=== PATIENT | male | born 2000 | race Caucasian/White ===

== ENCOUNTER 2021-02-03 01:22 | Emergency (ER) | payer MEDICAID, SELFPAY ==
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
[2021-02-03 01:25] VITALS: BP 112/86; PULSE 62; RESP 16; TEMP 36.7; O2SAT 98
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
[2021-02-03] MEDS: Acetaminophen 500 MG TAB 1000 MG PO (01:40)
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
== END 2021-02-03 02:08 | disposition home or self-care (01) ==
LOC: ER 02:11
PROVIDERS: Emergency Provider Emergency Medicine; PCP Neuromusculoskeletal Medicine & OMM
DX: G44.319 Acute post-traumatic headache, not intractable (principal); R40.2412 Glasgow coma scale score 13-15, at arrival to emergency department; V49.9XXA Car occupant (driver) (passenger) injured in unspecified traffic accident, initial encounter
CPT/HCPCS: 99284; 70450

== ENCOUNTER 2021-09-26 00:53 | Emergency (ER) | payer MEDICAID, SELFPAY ==
[2021-09-26 00:58] VITALS: BP 129/87; PULSE 77; RESP 18; TEMP 37.1; O2SAT 98
--- NOTE | 2021-09-26 01:08 | ED.GENADUL_ITS ---
Discharge Plan Disposition Patient Disposition: HOME Condition: Improving Discharge Details Clinical Impression: Pneumonia Primary Care Provider: Iker Poole ED Provider: Inder Cabrera Home Meds and New Rx's Prescriptions: New cefdinir 300 mg capsule 300 mg PO Q12H 10 Days Qty: 20 0RF Continued sertraline 50 mg Tablet 50 mg PO DAILY 0RF citalopram 10 mg tablet 10 mg DAILY 0RF Label Comments: TAKE ONE TABLET BY MOUTH EVERY DAY FOR 30 DAYS Discharge Instructions Instructions: Pneumonia (ED) Additional Instructions: Please take antibiotics as prescribed. Follow-up with regular doctor in [place] if not improving in 3 to 5 days time. Return to the ER for any acute concerns. Medical Decision Making 21-year-old male presents from home with 6 to 7 days of upper abdominal pain that is been fairly constant, nonradiating, worse with eating. Associated with nausea, vomiting, and loose watery stool. No known sick contacts. He states he was seen at an outlying ER and had a work-up including CT scan on the previous Thursday. Now presents for evaluation due to ongoing discomfort and intolerance of p.o. at home. Patient had IV access established, screening laboratories obtained, patient given fluids, antiemetic and analgesic. Chemistries are reassuring as are LFTs and lipase. CBC unremarkable. Urinalysis Patient with ongoing significant upper abdominal pain. Imaging was obtained. This does reveal ground glass opacity at the left base, consistent with pneumonitis. Patient may have been experienced discomfort or irritation of the diaphragm. Abdominal and pelvis images were unremarkable. Patient given dose of parenteral antibiotics and will be discharged home on oral course of antibiotic. HPI General Mode of arrival: ambulatory . Date/Time Provider Initiated Documentation: 09/26/21 00:53 . Limitations to Documentation: no limitations . Information obtained by: patient . History of Present Illness 21 year old M presents to the emergency department with the chief complaint of Nausea, vomiting, diarrhea and abdominal pain for 6 to 7 days, described as moderate, and is localized to the abdomen. Patient reports no radiation. Patient st arted experiencing this day(s) and it has been constant. improves with No relieving factors improve symptom(s), Eating worsens symptoms . Patient notes cough, fever/chills, loss of appetite, malaise and nausea/vomiting. Patient did receive the following treatments prior to arrival, none Related Data Home Medications Medication Instructions Recorded Confirmed sertraline 50 mg tablet 50 mg PO DAILY 02/03/21 02/03/21 cefdinir 300 mg capsule 300 mg PO Q12H 10 Days #20 cap 09/26/21 citalopram 10 mg tablet 10 mg DAILY 09/26/21 09/26/21 Previous Rx's Medication Instructions Recorded cefdinir 300 mg capsule 300 mg PO Q12H 10 Days #20 cap 09/26/21 Allergies Allergy/AdvReac Type Severity Reaction Status Date / Time latex Allergy Intermediate FACIAL Unverified 02/03/21 01:29 SWELLING General Stated Complaint: Nausea/Vomit/Diar PETRONA: 3 Review of Systems Narrative: Report of mild cough. 8 systems were reviewed and otherwise negative PFSH All Active Problems (Updated 09/26/21 @ 04:17 by Inder Cabrera MD) Headache, post-traumatic (Acute) Pneumonia (Acute) Anxiety and depression (Chronic) Surgical History Circumcision Family History Mother Substance abuse Mental disorder Father Substance abuse Mental disorder Social History Smoking/Tobacco Use Status: Never Smoking risk assessment performed?: Yes Alcohol Intake: never Drug use: Occasionally Substance use type: marijuana Do you feel safe at home: Yes Do you feel safe in your relationship?: Yes Exam Narrative Exam Narrative: GEN: awake, alert, oriented 3. Pleasant, well groomed, interactive. HEAD: Normocephalic, atraumatic ENT: Mucous membranes dry, oropharynx unremarkable, External ear exam unremarkable EYES: PERRL, EOMI NECK: Full ROM, no ZEV, no menigismus CHEST/RESP: Nontender, clear to auscultation bilateral, no wheeze/rhonchi/rales CARDIOVASCULAR: RRR, no murmur, rub antonio. 2+ Rad pulse bilateral ABDOMEN: Soft, tender in the epigastrium, no mass. + Decreased bowel sounds EXT: Full ROM, no edema, no rash Neuro: Grossly normal neurologic exam, conversant, interactive. Psych: Speech fluent, thoughts congruent, affect normal Course Vital Signs Vital signs: Vital Signs Temperature 37.1 C 09/26/21 00:58 Pulse 77 09/26/21 00:58 Respiratory Rate 18 09/26/21 00:58 Blood Pressure 129/87 09/26/21 00:58 Pulse Oximetry 98 09/26/21 00:58 Temperature 37.1 C 09/26/21 00:58 Temperature Source Tympanic 09/26/21 00:58 Pulse 77 09/26/21 00:58 Respiratory Rate 18 09/26/21 00:58 Respiratory Effort 09/26/21 01:00 Blood Pressure 129/87 09/26/21 00:58 Blood Pressure Position Supine 09/26/21 00:58 Pulse Oximetry 98 09/26/21 00:58 Oxygen Delivery Method Room Air 09/26/21 00:58 Oxygen Flow Rate 0 09/26/21 00:58 Pain Level 6 09/26/21 00:58
[2021-09-26 01:15] LABS: Abs Immature Grans 0.01 10^3/uL (0.0-0.06); Absolute Basophil Count 0.03 10^3/uL (0.0-0.2); Absolute Eosinophil Count 0.08 10^3/uL (0.0-0.7); Absolute Lymphocyte Count 1.84 10^3/uL (1.2-3.4); Absolute Monocyte Count 0.81 10^3/uL (0.1-0.8); Absolute Neutrophil Count 3.35 10^3/uL (1.2-6.7); Basophils % 0.5; Eosinophils % 1.3; HCT 43.1 % (40.0-50.0); HGB 15.1 g/dL (13.5-17.5); Immature Grans % 0.2; Lymphocytes % 30.1; MCH 30.3 pg (27.0-33.0); MCV 86.4 fL (80-95); MPV 9.3 fL (8.0-11.0); Monocytes % 13.2; Neutrophils % 54.7; Nucleated RBC 0 %; Platelet Count 225 10^3/uL (130-400); RBC 4.99 10^6/uL (4.36-5.78); RDW 10.8 % (11.8-14.1); RDW-SD 34.1 fL; WBC 6.12 10^3/uL (4.4-10.8)
[2021-09-26] MEDS: HYDROmorphone 2 MG/ML VIAL 0.5 MG IVP (01:16)
[2021-09-26] MEDS: Normal Saline 1,000 ML 1000 ML IV (01:16)
[2021-09-26] MEDS: Ondansetron 4 MG/2 ML VIAL IVP (01:16)
[2021-09-26 01:29] LABS: ALT 18 U/L (16-63); AST 22 U/L (15-37); Albumin 4.2 g/dL (3.4-5.0); Alkaline Phosphatase 76 U/L (46-116); BUN 15 mg/dL (7-18); Bilirubin, Total 0.5 mg/dL (0.2-1.0); Calcium 8.7 mg/dL (8.5-10.1); Chloride 106 mmol/L (98-107); Glucose 104 mg/dL (74-106); Lipase 124 U/L (73-393); Magnesium 2.2 mg/dL (1.8-2.4); Potassium 3.5 mmol/L (3.5-5.1); Sodium 142 mmol/L (136-145); Total Protein 8.1 g/dL (6.4-8.2)
--- NOTE | 2021-09-26 01:30 | DI.CT_ITS ---
Exam(s) CT ABDOMEN PELVIS W EXAM: CT ABDOMEN PELVIS W CLINICAL HISTORY: upper abd pain TECHNIQUE: Imaging Protocol: Axial computed tomography images with coronal and sagittal reformatted images were created and reviewed CONTRAST MATERIAL: Intravenous: Omnipaque 350 Contrast volume:100 mL Oral: Yes COMPARISON: No exams were available for comparison FINDINGS: ABDOMEN: Lung Bases: There is a multifocal ground-glass infiltrate in the lung bases, left greater than right. Liver: Normal density. No measurable mass. Portal, Superior Mesenteric, and Splenic Veins: Unremarkable. Gallbladder and Biliary Tract: No radiodense calculus or dilation. Pancreas: Normal density, no abnormal calcifications or inflammatory process. Spleen: Normal. Adrenals: No masses seen. Kidneys: Normal size, contour and axis. No radiodense stones or obstructive uropathy. No masses seen. Abdominal Aorta: Abdominal portion non-dilated. Bowel: No obstruction or bowel wall thickening. Appendix is unremarkable. Peritoneal Cavity: No ascites, collection or mesenteric inflammatory response. No free air. Lymph Nodes: Within normal limits. Bones: Within normal limits for the patient's age. Soft Tissues: Unremarkable. PELVIS: Bladder: Symmetric distention, no gross wall thickening. Reproductive Organs: Unremarkable as visualized. Lymph Nodes: Within normal limits. Bones: Within normal limits for the patient's age. IMPRESSION: 1. No acute abdominal or pelvic process. 2. Ground-glass infiltrate in the lung bases, left greater than right suspicious for pneumonia. RADIATION DOSE DELIVERED: 519.01mGy.cm Total DLP DATA REPOSITORY: All CT scans at this facility are submitted to the National Radiology Data Registry (NRDR) Dose Index Registry (DIR) with the [employer] (ACR). RADIATION OPTIMIZATION: All CT scans at this facility use at least one of these dose optimization te chniques: automated exposure control; mA and/or kV adjustment per patient size (includes targeted exa ms where dose is matched to clinical indication); or iterative reconstruction.
[2021-09-26] MEDS: Breeza Beverage 473 ML BTL 946 ML PO (02:00)
[2021-09-26 02:28] LABS: Bilirubin Negative (Negative); Blood Negative (Negative); Clarity Sl Cloudy (Clear); Glucose Negative (Negative); Ketones Trace mg/dL (Negative); Leukocyte Esterase Negative (Negative); Nitrite Negative (Negative); Specific Gravity >= 1.030 (1.005-1.025)
[2021-09-26 02:35] LABS: Bacteria Few HPF (Negative); C & S Indicated? No; Casts Negative LPF (Negative); Crystals Negative HPF (Negative); Epithelial Cells Rare HPF (Negative); Mucus Heavy (Negative); RBC 0-2 HPF (0-2); WBC 0-2 HPF (0-5)
[2021-09-26] MEDS: Omnipaque 350 MG/ML 100 ML BTL 150 ML IJ (03:51)
--- NOTE | 2021-09-26 04:07 | DI.VRAD_ITS ---
PROCEDURE INFORMATION: Exam: CT Abdomen And Pelvis With Contrast Exam date and time: 09/26/2021 3:43 AM Age: 21 years old Clinical indication: Abdominal pain; Localized; Upper; Additional info: Upper abd pain TECHNIQUE: Imaging protocol: Computed tomography of the abdomen and pelvis with contrast. Radiation optimization: All CT scans at this facility use at least one of these dose optimization techniques: automated exposure control; mA and/or kV adjustment per patient size (includes targeted exams where dose is matched to clinical indication); or iterative reconstruction. Contrast material: OMNI 350; Contrast volume: 100 ml; Contrast route: INTRAVENOUS (IV); COMPARISON: No relevant prior studies available. FINDINGS: Lungs: Ground-glass opacity left base consistent with pneumonitis, possibly viral or atypical organism. Liver: No enlargement or mass. Gallbladder and bile ducts: Unremarkable without gallstones, wall thickening or other findings of acute cholecystitis. Biliary tract nondilated. Pancreas: No enlargement. No mass. No ductal dilatation. Spleen: Normal size. No mass. Adrenal glands: No mass. No enlargement. No hemorrhage. Kidneys and ureters: No mass. No hydronephrosis. No hydroureter or ureterolithiasis. Stomach and bowel: Moderate fecal load within the colon. No significant diverticulosis or diverticulitis. No colitis. Stomach and small bowel are unremarkable without mechanical obstruction or pneumatosis. Appendix: Normal appearance without acute inflammation. Intraperitoneal space: No significant free fluid. No free intraperitoneal air. Vasculature: Aorta normal caliber without aneurysm. Several phleboliths within the pelvis. Lymph nodes: No significant lymphadenopathy demonstrated. Urinary bladder: No wall thickening, mass or calculus. Reproductive: Prostate is normal size. Bones/joints: Visualized osseous structures are unremarkable. Soft tissues: Radiopaque foreign body appears to be on the skin in the midline of the mid back, possibly related to clothing. Not felt to be of clinical significance. IMPRESSION: 1. No acute findings within the abdomen or pelvis. 2. Ground-glass opacity left base consistent with pneumonitis, possibly viral or atypical organism. Dictated and Authenticated by: Giovany Caro MD. Ordering:YADIRA Loving MD
[2021-09-26] MEDS: cefTRIAXone 1 GM/50 ML BAG 100 GM (04:23)
== END 2021-09-26 04:38 | disposition home or self-care (01) ==
PROVIDERS: Emergency Provider Emergency Medicine; PCP Neuromusculoskeletal Medicine & OMM
DX: J18.9 Pneumonia, unspecified organism (principal); R11.2 Nausea with vomiting, unspecified; R19.7 Diarrhea, unspecified; R10.10 Upper abdominal pain, unspecified
CPT/HCPCS: 80053; 83690; 96361; 96365; 96375; 99285; 74177; 81003; 81015; 83735; 85025; 99284; J0696; J2405; J3490

== ENCOUNTER 2022-02-24 19:38 | Emergency (ER) | payer MEDICAID, SELFPAY ==
[2022-02-24 19:42] VITALS: BP 119/67; PULSE 74; RESP 18; TEMP 37; O2SAT 99
--- NOTE | 2022-02-24 20:00 | DI.CT_ITS ---
Exam(s) CT ABDOMEN PELVIS W EXAM: CT ABDOMEN PELVIS W CLINICAL HISTORY: bloody diarrhea, lower abd pain TECHNIQUE: Imaging Protocol: Axial computed tomography images with coronal and sagittal reformatted images were created and reviewed CONTRAST MATERIAL: Intravenous: Omnipaque 350 Contrast volume:85 mL Oral: No COMPARISON: CT CT ABDOMEN PELVIS W from 09/26/2021 FINDINGS: ABDOMEN: Lung Bases: Normal where visualized. Liver: Normal density. No measurable mass. Portal, Superior Mesenteric, and Splenic Veins: Unremarkable. Gallbladder and Biliary Tract: No radiodense calculus or dilation. Pancreas: Normal density, no abnormal calcifications or inflammatory process. Spleen: Normal. Adrenals: No masses seen. Kidneys: Normal size, contour and axis. No radiodense stones or obstructive uropathy. No masses seen. There is an area of decreased perfusion in the anterior midpole of the left kidney. Abdominal Aorta: Abdominal portion non-dilated. Bowel: No obstruction or bowel wall thickening. Appendix is unremarkable. Peritoneal Cavity: No ascites, collection or mesenteric inflammatory response. No free air. Lymph Nodes: Within normal limits. Bones: Within normal limits for the patient's age. Soft Tissues: Unremarkable. PELVIS: Bladder: Symmetric distention, no gross wall thickening. Reproductive Organs: Unremarkable as visualized. Lymph Nodes: Within normal limits. Bones: Within normal limits for the patient's age. IMPRESSION: 1. Unremarkable bowel gas pattern. No evidence of obstruction or bowel wall thickening. 2. Area of decreased perfusion in the anterior midpole of the left kidney. This can be seen with reshma lonephritis. Please correlate clinically. RADIATION DOSE DELIVERED: 483.67mGy.cm Total DLP DATA REPOSITORY: All CT scans at this facility are submitted to the National Radiology Data Registry (NRDR) Dose Index Registry (DIR) with the [employer] (ACR). RADIATION OPTIMIZATION: All CT scans at this facility use at least one of these dose optimization te chniques: automated exposure control; mA and/or kV adjustment per patient size (includes targeted exa ms where dose is matched to clinical indication); or iterative reconstruction.
[2022-02-24] MEDS: Normal Saline 1,000 ML 1000 ML IV (20:27)
[2022-02-24] MEDS: Omnipaque 350 MG/ML 100 ML BTL IJ (20:29)
[2022-02-24] MEDS: Dicyclomine 10 MG CAP PO (20:32)
[2022-02-24] MEDS: ACETAMINOPHEN 1,000 MG/100 ML BTL 400 MG IVPB (20:32)
[2022-02-24] MEDS: Pantoprazole 40 MG VIAL IVP (20:32)
[2022-02-24] MEDS: Ondansetron 4 MG/2 ML VIAL IVP (20:32)
[2022-02-24 20:33] LABS: Abs Immature Grans 0.02 10^3/uL (0.0-0.06); Absolute Basophil Count 0.03 10^3/uL (0.0-0.2); Absolute Eosinophil Count 0.04 10^3/uL (0.0-0.7); Absolute Lymphocyte Count 2.03 10^3/uL (1.2-3.4); Absolute Monocyte Count 0.41 10^3/uL (0.1-0.8); Absolute Neutrophil Count 4.15 10^3/uL (1.2-6.7); Basophils % 0.4; Eosinophils % 0.6; HCT 44.1 % (40.0-50.0); HGB 15.4 g/dL (13.5-17.5); Immature Grans % 0.3; Lymphocytes % 30.4; MCH 30.3 pg (27.0-33.0); MCHC 34.9 % (32.0-36.0); MCV 87 fL (80-95); MPV 9.2 fL (8.0-11.0); Monocytes % 6.1; Neutrophils % 62.2; Platelet Count 263 10^3/uL (130-400); RBC 5.09 10^6/uL (4.36-5.78); RDW-SD 34.6 fL; WBC 6.68 10^3/uL (4.4-10.8)
[2022-02-24] MEDS: Normal Saline Flush 10 ML SYR IVP (20:44)
[2022-02-24 20:47] LABS: ALT 15 U/L (16-63); AST 17 U/L (15-37); Albumin 4.5 g/dL (3.4-5.0); Alkaline Phosphatase 82 U/L (46-116); Anion Gap 7.6 mmol/L (3-11); BUN 13 mg/dL (7-18); Bilirubin, Total 1.1 mg/dL (0.2-1.0); CO2 28.4 mmol/L (21.0-32.0); CREATININE 1.1 mg/dL (0.70-1.30); Calcium 9.7 mg/dL (8.5-10.1); Chloride 106 mmol/L (98-107); Estimated GFR 98.56 (mL/min/1.73m2); Glucose 87 mg/dL (74-106); Lipase 111 U/L (73-393); Potassium 3.9 mmol/L (3.5-5.1); Sodium 142 mmol/L (136-145); Total Protein 8.7 g/dL (6.4-8.2)
--- NOTE | 2022-02-24 20:56 | DI.VRAD_ITS ---
PROCEDURE INFORMATION: Exam: CT Abdomen And Pelvis With Contrast Exam date and time: 02/24/2022 8:45 PM Age: 21 years old Clinical indication: Abdominal pain; Localized; Patient HX: Bloody diarrhea, lower abd pain TECHNIQUE: Imaging protocol: Computed tomography of the abdomen and pelvis with contrast. Radiation optimization: All CT scans at this facility use at least one of these dose optimization techniques: automated exposure control; mA and/or kV adjustment per patient size (includes targeted exams where dose is matched to clinical indication); or iterative reconstruction. Contrast material: OMNIPAQUE 350; Contrast volume: 85 ml; Contrast route: INTRAVENOUS (IV); COMPARISON: CT ABDOMEN PELVIS W 09/26/2021 3:43 AM FINDINGS: Liver: Normal. No mass. Gallbladder and bile ducts: Normal. No calcified stones. No ductal dilation. Pancreas: Normal. No ductal dilation. Spleen: Normal. No splenomegaly. Adrenal glands: Normal. No mass. Kidneys and ureters: Ill-defined hypodensity in the midpole of the left kidney. Question faint striations noted. No hydronephrosis. Stomach and bowel: Unremarkable. No obstruction. No mucosal thickening. Appendix: No evidence of appendicitis. Intraperitoneal space: Unremarkable. No free air. No significant fluid collection. Vasculature: Unremarkable. No abdominal aortic aneurysm. Lymph nodes: Unremarkable. No enlarged lymph nodes. Urinary bladder: Unremarkable as visualized. Reproductive: Unremarkable as visualized. Bones/joints: Unremarkable. No acute fracture. Soft tissues: Unremarkable. IMPRESSION: Ill-defined hypodensity in the midpole of the left kidney which may represent evolving pyelonephritis. Clinical correlation recommended Nonspecific nonobstructed bowel gas pattern Dictated and Authenticated by: Cedric Vega MD. Ordering:AKASH Gonzalez MD
--- NOTE | 2022-02-24 21:18 | ED.GENADUL_ITS ---
Discharge Plan Disposition Patient Disposition: HOME Condition: Good Discharge Details Clinical Impression: Diarrhea, Abdominal cramping Primary Care Provider: Iker Poole ED Provider: Carlos Andrews Home Meds and New Rx's Prescriptions: New pantoprazole [Protonix] 40 mg tablet,delayed release (DR/EC) 40 mg PO DAILY Qty: 30 0RF sucralfate [Carafate] 1 gram tablet 1 g PO BID Qty: 60 0RF dicyclomine 10 mg capsule 10 mg PO BID Qty: 30 0RF Continued sertraline 50 mg Tablet 50 mg PO DAILY citalopram 10 mg tablet 10 mg DAILY Label Comments: TAKE ONE TABLET BY MOUTH EVERY DAY FOR 30 DAYS Discharge Instructions Instructions: Abdominal Pain (ED) Additional Instructions: At this time your symptoms appear consistent with mild intestinal irritation probably mild clinical gastritis. As we discussed together at length, it is vitally important that you have a colonoscopy during that you have recovered for further evaluation. In the meantime we have given you prescriptions for dicyclomine to help with cramping, Protonix to help with stomach acid, and Carafate to help with stomach acid as well. Please take these as directed. Please follow-up closely with your panel edge sealer. Please avoid any spicy foods, tomato-based foods, citrus foods, and stick with a bland diet of rice, bananas, crackers, toast for the next 2 weeks. If you notice any worsening of your symptoms, or any new symptoms such as vomiting, diarrhea, fever, chills, shortness of breath, chest pain, numbness, weakness, or fainting , please return immediately to the emergency department for reevaluation. Please follow up with your primary care provider as soon as possible for reassessment and reevaluation. As always, it was a pleasure participating in your medical care today. Stand Alone Forms: Work Release Referrals: Iker Poole [Primary Care Provider] - Eliazar Myers [ NON-[facility] STAFF PHYSICIAN] - Discharge Data Discharge Date/Time-TO BE ENTERED AT DEPARTURE: 02/24/22 22:33 Medical Decision Making This is a 21-year-old male with a past medical history of irritable bowel syndrome who presents today for diarrhea. Patient states that he has a long history of irritable bowel some diarrhea, going on for the last 4 to 6 years. He has a family history of Crohn's and ulcerative colitis. Patient states that on Thursday which was 6 days ago he had diarrhea, nausea, vomiting some blood was noted in the vomit, and he had some blood in his stool. He states that this is happened before. On Thursday things notably improved and resolved, and then on Thursday and Thursday just 2 days ago and today he had a return of his diarrhea and mild abdominal cramping. He denies any blood whatsoever in his stool now. He denies any vomiting currently. He admits to mild achiness throughout his abdomen. He has not yet scheduled himself for colonoscopy. He denies any recent antibiotics, recent foreign travel or new dietary changes, he denies any drinking from streams or lakes. No other complaints at this time. Patient is here with his male partner. He denies any rectal intercourse within the last 2 weeks. He states that whenever he does perform anal intercourse on his partner he always wears protection/condoms. He denies a history of STDs. He does admit to some mild dysuria at this time, but denies seeing any blood in his urine. He denies any previous STDs. Exam demonstrates a nonsurgical abdomen. No acute tenderness. Mild achiness throughout. No blood in his stool at this time. Differential is highest for ulcerative colitis, Crohn's, colitis in general, or viral gastroenteritis. Infectious diarrhea is less likely with no red flags historically. Urinary tract infection and fistula is of concern. We will check for these concerning etiologies, get a CT scan, laboratory work-up, treat for suspected gastric irritation, monitor closely and reassess. [address] scan has returned, no evidence of acute process. There is no defined hypodensity in the midpole of the left kidney, however urinalysis is notably unremarkable with no evidence of infection whatsoever. We will send for STD testing. Patient feels slightly improved on reassessment. Electrolytes normal, no white count, bandemia or shift. Hemoglobin is stable. At this time symptoms appear consistent with mild gastroenteritis. Will recommend continued proton pump inhibitor, Carafate, and Bentyl for home. We will recommend close outpatient follow-up with gastroenterology for colonoscopy for further assessment. Close follow-up with PCP. Discussed red flags which to return. I have extensively reviewed the treatment plan and discharge instructions with the patient. I have addressed all patient concerns at this time. The patient was made aware of what symptoms to monitor for that would warrant a return to the emergency department. Discussed the plan with the patient, they demonstrate verbal understanding and agreement with our assessment and plan at this time. The documentation in this chart was dictated using [employer] dictation software. Please excuse any dictation errors. FINDINGS: Liver: Normal. No mass. Gallbladder and bile ducts: Normal. No calcified stones. No ductal dilation. Pancreas: Normal. No ductal dilation. Spleen: Normal. No splenomegaly. Adrenal glands: Normal. No mass. Kidneys and ureters: Ill-defined hypodensity in the midpole of the left kidney. Question faint striations noted. No hydronephrosis. Stomach and bowel: Unremarkable. No obstruction. No mucosal thickening. Appendix: No evidence of appendicitis. Intraperitoneal space: Unremarkable. No free air. No significant fluid collection. Vasculature: Unremarkable. No abdominal aortic aneurysm. Lymph nodes: Unremarkable. No enlarged lymph nodes. Urinary bladder: Unremarkable as visualized. Reproductive: Unremarkable as visualized. Bones/joints: Unremarkable. No acute fracture. Soft tissues: Unremarkable. IMPRESSION: Ill-defined hypodensity in the midpole of the left kidney which may represent evolving pyelonephritis. Clinical correlation recommended Nonspecific nonobstructed bowel gas pattern Thank you for allowing us to participate in the care of your patient. Dictated and Authenticated by: Cedric Vega MD 02/24/2022 8:55 PM Eastern Time ([place] & [place] HPI General Date/Time Provider Initiated Documentation: 02/24/22 19:38 . HPI Narrative: This is a 21-year-old male with a past medical history of irritable bowel syndrome who presents today for diarrhea. Patient states that he has a long history of irritable bowel some diarrhea, going on for the last 4 to 6 years. He has a family history of Crohn's and ulcerative colitis. Patient states that on Thursday which was 6 days ago he had diarrhea, nausea, vomiting some blood was noted in the vomit, and he had some blood in his stool. He states that this is happened before. On Thursday things notably improved and resolved, and then on Thursday and Thursday just 2 days ago and today he had a return of his diarrhea and mild abdominal cramping. He denies any blood whatsoever in his stool now. He denies any vomiting currently. He admits to mild achiness throughout his abdomen. He has not yet scheduled himself for colonoscopy. He denies any recent antibiotics, recent foreign travel or new dietary changes, he denies any drinking from streams or lakes. No other complaints at this time. Patient is here with his male partner. He denies any rectal intercourse within the last 2 weeks. He states that whenever he does perform anal intercourse on his partner he always wears protection/condoms. He denies a history of STDs. He does admit to some mild dysuria at this time, but denies seeing any blood in his urine. He denies any previous STDs. Related Data Home Medications Medication Instructions Recorded Confirmed sertraline 50 mg tablet 50 mg PO DAILY 02/03/21 02/24/22 citalopram 10 mg tablet 10 mg DAILY 09/26/21 02/24/22 dicyclomine 10 mg capsule 10 mg PO BID #30 caps 02/24/22 pantoprazole 40 mg tablet,delayed 40 mg PO DAILY #30 tabs 02/24/22 release (Protonix) sucralfate 1 gram tablet (Carafate) 1 g PO BID #60 tabs 02/24/22 Previous Rx's Medication Instructions Recorded dicyclomine 10 mg capsule 10 mg PO BID #30 caps 02/24/22 pantoprazole 40 mg tablet,delayed 40 mg PO DAILY #30 tabs 02/24/22 release (Protonix) sucralfate 1 gram tablet (Carafate) 1 g PO BID #60 tabs 02/24/22 Allergies Allergy/AdvReac Type Severity Reaction Status Date / Time latex Allergy Intermediate FACIAL Unverified 02/24/22 19:45 SWELLING General Stated Complaint: GI Bleed PETRONA: 3 Review of Systems All systems reviewed & are unremarkable except as noted in HPI and below PFSH All Active Problems Headache, post-traumatic (Acute) Diarrhea (Acute) Abdominal cramping (Acute) Anxiety and depression (Chronic) Surgical History Circumcision Family History Mother Substance abuse Mental disorder Father Substance abuse Mental disorder Social History (Reviewed 02/25/22 @ 00:15 by MONTRELL Garcia Smoking/Tobacco Use Status: Current every day Tobacco Type: e-cigarettes Smoking risk assessment performed?: Yes Alcohol Intake: current Alcohol Intake frequency: a few times a month Drug use: Current Sobriety Substance use type: former substance user Do you feel safe at home: Yes Do you feel safe in your relationship?: Yes Exam Narrative Exam Narrative: 1.Const: Well-nourished, Well-developed, appearing stated age 2.Eyes: PERRL, no conjunctival injection, and symmetrical lids. 3.ENT: Atraumatic external nose and ears. Moist MM. Neck: Symmetric, trachea midline, No thyromegaly. 4.CVS: +S1/S2, No murmurs or gallops. Peripheral pulses 2+ and equal in all extremities. Brisk capillary refill in all extremities. 5.RESP: Unlabored respiratory effort. Clear to auscultation bilaterally. No wheezes rales or rhonchi 6.GI: Soft, Nontender/Nondistended, No hepatosplenomegaly. No guarding or rebound. No guarding or rebound. No pain at McBurney's point. Negative Stafford sign. Mild achiness throughout the 7.MSK: Normocephalic/Atraumatic, Extremities w/o deformity or ttp No cyanosis or clubbing, Normal movement of all extremities 8.Skin: Warm, Dry. No rashes or lesions. 9.Neuro: job placement officer II-XII grossly intact. Sensation grossly intact, no focal neurologic deficits. 10.Psych: (AAO) x3. Appropriate mood and affect Course Vital Signs Vital signs: Vital Signs Temperature 37.0 C 02/24/22 19:42 Pulse 74 02/24/22 19:42 Respiratory Rate 18 02/24/22 19:42 Blood Pressure 119/67 02/24/22 19:42 Pulse Oximetry 99 02/24/22 19:42 Temperature 37.0 C 02/24/22 19:42 Temperature Source Oral 02/24/22 19:42 Pulse 74 02/24/22 19:42 Respiratory Rate 18 02/24/22 19:42 Respiratory Effort 02/24/22 19:46 Blood Pressure 119/67 02/24/22 19:42 Pulse Oximetry 99 02/24/22 19:42 Oxygen Delivery Method Room Air 02/24/22 19:42 Oxygen Flow Rate 0 02/24/22 19:42 Pain Level 8 02/24/22 19:42 Lab/Test Results Lab/Test Results: Laboratory Tests Range/Units 02/24/22 02/24/22 20:25 20:25 WBC (4.4-10.8) 10^3/uL 6.68 RBC (4.36-5.78) 10^6/uL 5.09 Hgb (13.5-17.5) g/dL 15.4 Hct (40.0-50.0) % 44.1 MCV (80-95) fL 87 MCH (27.0-33.0) pg 30.3 MCHC (32.0-36.0) % 34.9 RDW (11.8-14.1) % 11.0 L Plt Count (130-400) 10^3/uL 263 MPV (8.0-11.0) fL 9.2 Immature Gran % 0.3 Neutrophils % 62.2 Lymphocytes % 30.4 Monocytes % 6.1 Eosinophils % 0.6 Basophils % 0.4 Nucleated RBC % (0.0-0.3) % 0.0 Absolute Neutrophils (1.2-6.7) 10^3/uL 4.15 Absolute Lymphocytes (1.2-3.4) 10^3/uL 2.03 Absolute Monocytes (0.1-0.8) 10^3/uL 0.41 Absolute Eosinophils (0.0-0.7) 10^3/uL 0.04 Absolute Basophils (0.0-0.2) 10^3/uL 0.03 Sodium (136-145) mmol/L 142 Potassium (3.5-5.1) mmol/L 3.9 Chloride (98-107) mmol/L 106 Carbon Dioxide (21.0-32.0) mmol/L 28.4 Anion Gap (3-11) mmol/L 7.6 BUN (7-18) mg/dL 13 Creatinine (0.70-1.30) mg/dL 1.1 Est GFR (CKD-EPI 2020) (mL/min/1.73m2) 98.56 Glucose (74-106) mg/dL 87 Calcium (8.5-10.1) mg/dL 9.7 Total Bilirubin (0.2-1.0) mg/dL 1.1 H AST (15-37) U/L 17 ALT (16-63) U/L 15 L Alkaline Phosphatase (46-116) U/L 82 Total Protein (6.4-8.2) g/dL 8.7 H Albumin (3.4-5.0) g/dL 4.5 Lipase (73-393) U/L 111 PAWSS Have you Been Recently Intoxicated or Drunk Within the Last 30 days?: No Have you Ever Experienced Previous Episodes of Alcohol Withdrawal?: No Have you ever Experienced Withdrawal Seizures?: No Have you ever Experienced Delirium Tremens(DT)s?: No Have you ever undergone Alcohol Rehabilitation Treatment (i.e, inpt ot outpatient treatment programs)?: No Have you ever Experienced Blackouts?: No Have you ever Combined Alcohol with other Downers within the last 90 days?: No Have you ever Combined Alcohol with any other Substance of Abuse during the last 90 days?: No Positive Blood Alcohol level on Presentation? [PCS.BAL]: No Evidence of Increased Autonomic Activity (i.e. HR>120, tremor, sweating, agitation, nausea)?: No Result: 0
[2022-02-24 21:32] LABS: Bilirubin Negative (Negative); Blood Negative (Negative); Clarity Clear (Clear); Glucose Negative (Negative); Ketones Negative (Negative); Leukocyte Esterase Negative (Negative); Nitrite Negative (Negative); Specific Gravity 1.015 (1.005-1.025); pH 7.5 (5-8)
[2022-02-24 22:00] VITALS: BP 110/68; PULSE 54; RESP 16; O2SAT 97
[2022-02-24] MEDS: Sucralfate 1 GM TAB PO (22:01)
[2022-02-26 15:38] LABS: Chlamydia Result Negative (Negative); GC Result Negative (Negative)
== END 2022-02-24 22:33 | disposition home or self-care (01) ==
PROVIDERS: Emergency Provider Student in an Organized Health Care Education/Training Program; PCP Neuromusculoskeletal Medicine & OMM
DX: R19.7 Diarrhea, unspecified (principal); R10.9 Unspecified abdominal pain; F17.290 Nicotine dependence, other tobacco product, uncomplicated
CPT/HCPCS: 36415; 80053; 83690; 87491; 87591; 96361; 96374; 96375; 99285; 74177; 81003; 85025; 99284; J0131; J2405; J3490